=== PATIENT | male | born 1945 | race Caucasian/White ===

== ENCOUNTER 2020-06-05 09:32 | Outpatient (CLI) | payer MEDICARE, SELFPAY ==
[2020-06-05 10:42] LABS: Alanine Aminotransferase 57 U/L (16-63); Albumin Level 3.8 g/dL (3.4-5.0); Alkaline Phosphatase 92 U/L (46-116); Anion Gap 9 mmol/L (8-16); Aspartate Amino Transferase 29 U/L (15-37); Bilirubin,Total 0.4 mg/dL (0.00-1.00); Blood Urea Nitrogen 10 mg/dL (7-18); Carbon Dioxide 30 mmol/L (21-32); Chloride 103 mmol/L (98-108); Cholesterol 273 mg/dL (0-200); Estimated Glomerular Filt Rate > 60; Glucose 198 mg/dL (70-99); HDL Direct 40 mg/dL (40-60); LDL Cholesterol Calculated 171 mg/dL (<130); Osmolality Calculated 299 mOsm/kg (285-295); Potassium 4.1 mmol/L (3.5-5.1); Prostate Specific Antigen 7.5 ng/mL (< OR = 4.0); Sodium 142 mmol/L (136-145); Total Protein 8.1 g/dL (6.4-8.2); Triglycerides 311 mg/dL (0-150)
[2020-06-05 16:51] LABS: Hemoglobin A1C 7.5 % (<5.7)
== END 2020-06-05 09:33 | disposition home or self-care (01) ==
LOC: CHSLAB 09:34
PROVIDERS: PCP Nurse Practitioner Family; Visit Provider Nurse Practitioner Family
DX: E78.5 Hyperlipidemia, unspecified (principal); R35.0 Frequency of micturition; Z12.5 Encounter for screening for malignant neoplasm of prostate; R73.09 Other abnormal glucose
CPT/HCPCS: 36415; 80053; 80061; 83036; 84153; G0103

== ENCOUNTER 2020-06-19 10:29 | Outpatient (CLI) | payer MEDICARE, SELFPAY ==
[2020-06-19 11:36] LABS: Alanine Aminotransferase 57 U/L (16-63); Alkaline Phosphatase 99 U/L (46-116); Anion Gap 7 mmol/L (8-16); Aspartate Amino Transferase 30 U/L (15-37); Bilirubin,Total 0.3 mg/dL (0.00-1.00); Blood Urea Nitrogen 16 mg/dL (7-18); Calcium 11.4 mg/dL (8.5-10.1); Carbon Dioxide 31 mmol/L (21-32); Chloride 103 mmol/L (98-108); Estimated Glomerular Filt Rate > 60; Glucose 223 mg/dL (70-99); Osmolality Calculated 300 mOsm/kg (285-295); Potassium 4.4 mmol/L (3.5-5.1); Sodium 141 mmol/L (136-145); Total Protein 6.9 g/dL (6.4-8.2)
== END 2020-06-19 10:30 | disposition home or self-care (01) ==
LOC: CHSLAB 10:31
PROVIDERS: PCP Nurse Practitioner Family; Visit Provider Nurse Practitioner Family
DX: E83.52 Hypercalcemia (principal)
CPT/HCPCS: 36415; 80053

== ENCOUNTER 2020-06-22 10:40 | Outpatient (CLI) | payer MEDICARE, SELFPAY ==
[2020-06-22 11:39] LABS: Thyroid Stimulating Hormone 1.21 uIU/mL (0.36-3.74)
[2020-06-24 14:04] LABS: Parathyroid Intact 195 pg/mL (14-64)
[2020-06-25 05:29] LABS: Ionized Calcium 6.7 mg/dL (4.8-5.6)
[2020-06-29 10:20] LABS: Vitamin D 25 Hydroxy 9 ng/mL (30-100)
== END 2020-06-22 10:41 | disposition home or self-care (01) ==
LOC: CHSLAB 10:42
PROVIDERS: PCP Nurse Practitioner Family; Visit Provider Nurse Practitioner Family
DX: E83.52 Hypercalcemia (principal)
CPT/HCPCS: 36415; 82306; 82330; 83970; 84439; 84443

== ENCOUNTER 2020-09-11 11:42 | Outpatient (CLI) | payer MEDICARE, SELFPAY ==
[2020-09-11 12:09] LABS: Hemoglobin A1C 6.7 % (<5.7)
[2020-09-11 13:24] LABS: Alanine Aminotransferase 50 U/L (16-63); Albumin Level 3.8 g/dL (3.4-5.0); Alkaline Phosphatase 87 U/L (46-116); Anion Gap 4 mmol/L (8-16); Aspartate Amino Transferase 25 U/L (15-37); Bilirubin,Total 0.4 mg/dL (0.00-1.00); Blood Urea Nitrogen 12 mg/dL (7-18); Calcium 11.6 mg/dL (8.5-10.1); Carbon Dioxide 31 mmol/L (21-32); Chloride 104 mmol/L (98-108); Estimated Glomerular Filt Rate > 60; Glucose 98 mg/dL (70-99); Osmolality Calculated 287 mOsm/kg (285-295); Potassium 4.1 mmol/L (3.5-5.1); Prostate Specific Antigen 8.7 ng/mL (< OR = 4.0); Sodium 139 mmol/L (136-145); Total Protein 6.8 g/dL (6.4-8.2)
== END 2020-09-11 11:43 | disposition home or self-care (01) ==
PROVIDERS: PCP Nurse Practitioner Family; Visit Provider Nurse Practitioner Family
DX: E11.9 Type 2 diabetes mellitus without complications (principal); Z12.5 Encounter for screening for malignant neoplasm of prostate
CPT/HCPCS: 36415; 80053; 83036; 84153; G0103

== ENCOUNTER 2020-10-08 16:32 | Emergency (ER) | payer MEDICARE, SELFPAY ==
--- NOTE | ~2020-10-08 | CT_ITS ---
EXAMINATION: CT abdomen pelvis wo con DATE: 10/08/2020 17:39 INDICATION: Right flank pain TECHNIQUE: Computed tomography (CT) of the abdomen and pelvis was performed without intravenous contr ast. The dose-length product was 501.08 mGy-cm. Automated exposure control and iterative reconstructi on technique were employed. COMPARISON: CT dated 11/30/2013 FINDINGS: Heart size is normal. No significant pleural or pericardial effusion. No significant vascul ar abnormality. There are small stones dependently in the bladder. There is mild right hydronephrosis , although no obstructing stone is present. Left ureter is normal caliber. There are nonobstructing l eft renal stones. There are gallstones. The spleen, pancreas, adrenal glands are unremarkable. There is a punctate nonobstructing right renal stone. There is a 1.8 cm right renal cyst. Bowel gas pattern is nonobstructive. Normal appendix. Col onic diverticulosis without evidence for diverticulitis. Enlarged prostate gland. Moderate lumbar spo ndylosis. No osteolytic or osteoblastic lesions. Levoscoliosis. IMPRESSION: 1. Punctate dependent bladder stones with mild right hydronephrosis. 2: Nonobstructing bilateral nephrolithiasis. 3: Cholelithiasis. Reviewed, dictated and finalized at location A. 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
--- NOTE | 2020-10-08 16:49 | ED.ABDPAIN ---
HPI - Abdominal Pain General Chief Complaint: Urogenital-Male Stated Complaint: back flank pain Time Seen by Provider: 10/08/20 16:49 Source: patient Mode of arrival: ambulatory Limitations: no limitations History of Present Illness HPI narrative: 75-year-old man with a history of urolithiasis comes in today complaining of 2 episodes of severe right back and flank pain that started very early this morning. States that pain lasted for few hours and by midmorning resolved. He states the pain came back about 2:00 p.m. this afternoon but has since resolved after taking some ibuprofen. He has had some nausea but denies fever, vomiting, diarrhea, hematuria, dysuria, cough or cold symptoms, sore throat, body aches, weakness, numbness or tingling. MD elicited complaint: flank pain Pertinent past history: kidney stones Onset (ago): hour(s) (12) Pain Consistency: intermittent and now resolved Location: R flank Severity: severe Quality: sharp Radiation: none Migration to: no migration Exacerbating factors: nothing Relieving factors: nothing Associated symptoms: nausea Treatments prior to arrival: NSAIDs Related Data Home Medications Medication Instructions Recorded Confirmed finasteride 5 mg PO DAILY 10/08/20 10/08/20 Allergies Allergy/AdvReac Type Severity Reaction Status Date / Time Tetracyclines Allergy Intermediate Unknown Verified 10/08/20 16:59 metformin AdvReac Intermediate severe Verified 10/08/20 16:59 diarrhea Review of Systems Constitutional: Constitutional: Denies chills, Denies fever(s) and Denies weakness Eyes: Eyes: Denies change in vision and Denies photophobia ENT: Denies dysphagia, Denies nasal congestion and Denies sore throat Cardiovascular: Cardiovascular: Denies chest pain and Denies radiating jaw, neck or arm pain Respiratory: Respiratory: Denies cough, Denies dyspnea and Denies wheezing Gastrointestinal: Gastrointestinal: Reports abdominal pain, Denies diarrhea and Denies vomiting Genitourinary: Genitourinary: Denies hematuria, Denies urinary frequency and Denies urinary incontinence Musculoskeletal: Musculoskeletal: Denies arthralgias and Denies joint swelling Integumentary/Breasts: Skin/Breast: Denies pruritus, Denies erythema and Denies rash Neurologic: Denies vertigo, Denies dizziness and Denies syncope Hematologic/Lymphatic: Hematologic/Lymphatic: Denies easy bleeding and Denies easy bruising Allergic/Immunologic: Allergic/Immunologic: Denies lip swelling and Denies throat swelling PMFSH Past Medical History Medical History Cough Elevated PSA History of nephrolithotomy with removal of calculi Hyperlipidemia IBS (irritable bowel syndrome) Influenza A Nicotine dependence in remission Overweight Subungual contusion of toenail of left foot Type 2 diabetes mellitus Surgical History Surgical History H/O wrist surgery (~2001) wrist pinning History of tonsillectomy Previous back surgery (~1983) herniated disc repair Family History Family History Mother Benign hypertension IBS (irritable bowel syndrome) Migraines Father Hyperlipidemia Heart attack Social History Social History Years smoked: 40 Tobacco type: cigarettes Alcohol intake: current Substance use: never Substance use type: does not use Additional living arrangements comments: , has 2 children Additional occupation/education comments: [employer] Gender identity (if verbalized by the patient): Male Spiritual care concerns: No Exam Const: General: healthy appearing and no acute distress Orientation/consciousness: patient oriented x3 Limitations: no limitations HENMT: Head: normal to inspection Ears: external ears normal, TM's normal bilaterally
[2020-10-08 16:54] VITALS: BP 167/97; PULSE 81; RESP 20; TEMP 36.7; O2SAT 98
[2020-10-08 16:55] LABS: Add Urine Microscopic? YES; Appearance Urine Clear (Clear); Bilirubin Urine Negative (Negative); Blood Urine 3+ (Negative); Color Urine Yellow (Yellow); Glucose Urine UA Negative (Negative); Ketones Urine Negative (Negative); Leukocyte Esterase Ur Trace (Negative); Nitrate Urine Negative (Negative); Protein Urine Negative (Negative); Urobilinogen Urine 0.2 mg/dL (0.2-1.0); pH Urine 6.5 (5.0-8.0)
[2020-10-08 17:00] LABS: Bacteria Urine Trace /hpf; RBC Urine >75 /hpf (0-2); Squamous Epithelial Cell Urine Rare /hpf (Few); WBC Urine None seen /hpf (0-3)
[2020-10-08 17:01] LABS: Budding Yeast Urine Present /hpf
[2020-10-08 17:20] LABS: Basophils Absolute Auto 0.07 K/mm3 (0.00-0.10); Basophils Percent Auto 0.7 % (0.0-1.0); Eosinophils Absolute Auto 0.19 K/mm3 (0.02-0.50); Eosinophils Percent Auto 1.8 % (1.0-6.0); Hematocrit 41.3 % (37.0-46.0); Hemoglobin 13.5 g/dL (12.4-15.3); Immature Granulocyte Absolute 0.04 K/mm3 (0.00-0.00); Immature Granulocyte Percent A 0.4 % (0.0-0.0); Lymphocytes Absolute Auto 2.39 K/mm3 (1.10-4.50); Lymphocytes Percent Auto 22.3 % (18.0-42.0); Mean Corpuscular HGB Conc 32.7 g/dL (32.0-36.0); Mean Corpuscular Volume 88.6 fL (78.0-102.0); Mean Platelet Volume 9.9 fl (8.7-11.0); Monocytes Absolute Auto 0.88 K/mm3 (0.10-0.90); Monocytes Percent Auto 8.2 % (2.0-11.0); Neutrophils Absolute Auto 7.2 K/mm3 (1.7-7.2); Neutrophils Percent Auto 66.6 % (50.0-70.0); Platelet Count Result 275 K/mm3 (150-420); Red Blood Count 4.66 M/mm3 (4.70-6.10); Red Cell Distribution Width 13.4 % (11.6-14.4); White Blood Count 10.7 K/mm3 (4.8-10.8)
[2020-10-08 17:29] LABS: Partial Thromboplastin Time 22.7 SEC (23.90-30.70); Prothrombin Time 10.5 Seconds (9.50-12.10)
[2020-10-08 17:30] LABS: Alanine Aminotransferase 51 U/L (16-63); Albumin Level 3.5 g/dL (3.4-5.0); Alkaline Phosphatase 83 U/L (46-116); Anion Gap 10 mmol/L (8-16); Aspartate Amino Transferase 24 U/L (15-37); Bilirubin,Total 0.4 mg/dL (0.00-1.00); Blood Urea Nitrogen 15 mg/dL (7-18); Carbon Dioxide 28 mmol/L (21-32); Chloride 103 mmol/L (98-108); Estimated CRCL calculation 60 ml/min; Estimated Glomerular Filt Rate > 60; Glucose 141 mg/dL (70-99); Osmolality Calculated 294 mOsm/kg (285-295); Potassium 3.6 mmol/L (3.5-5.1); Sodium 141 mmol/L (136-145); Total Protein 6.9 g/dL (6.4-8.2)
[2020-10-08 17:33] LABS: Lactic Acid Reflex 1.5 mmol/L (0.4-2.0)
[2020-10-08 17:47] VITALS: BP 153/83; PULSE 75; RESP 20; O2SAT 97
[2020-10-08 18:09] VITALS: PULSE 78; RESP 20; O2SAT 98
== END 2020-10-08 18:11 | disposition home or self-care (01) ==
PROVIDERS: Emergency Provider Emergency Medicine; PCP Family Medicine
DX: N21.0 Calculus in bladder (principal); E11.9 Type 2 diabetes mellitus without complications; E78.5 Hyperlipidemia, unspecified; Z87.891 Personal history of nicotine dependence
CPT/HCPCS: 36415; 74176; 80053; 81001; 83605; 85025; 85610; 85730; 87040; 87086; 99283; 99284

== ENCOUNTER 2020-11-08 12:46 | Emergency (ER) | payer MEDICARE, SELFPAY ==
--- NOTE | ~2020-11-08 | CT_ITS ---
EXAMINATION: CT abdomen pelvis wo con DATE: 11/08/2020 14:00 INDICATION: Left flank pain. Nausea. TECHNIQUE: Computed tomography (CT) of the abdomen and pelvis was performed without intravenous contr ast. Automated exposure control and iterative reconstruction technique were employed. The dose-length product was 844.49 mGy-cm. COMPARISON: CT abdomen and pelvis 10/08/2020 FINDINGS: The visualized portions of the lung bases demonstrate mild atelectasis. No pleural effusion . The heart size is normal. There are coronary artery calcifications. There are calcifications of aor tic valve. No pericardial effusion. There is bilateral gynecomastia. There is diffuse hepatic steatos is. There is a gallstone in the gallbladder, which is normal in size. The spleen, pancreas, and left adrenal gland are normal. There is a 7 mm mass of fat in right adrenal gland, consistent with a myelo lipoma. There is a 2.0 cm cyst in right kidney. There is a 3 mm stone in right kidney. There is mild left hydronephrosis and hydroureter. There is a 4 mm stone in proximal left ureter. There are multipl e stones in the bladder measuring up to 6 mm. The prostate is severely enlarged. There is diverticulo sis of the colon without evidence of diverticulitis. There are no dilated loops of bowel. The appendi x is normal. There are no pathologically enlarged lymph nodes. There is no free intraperitoneal fluid . There is lumbar levoscoliosis and severe spondylosis. IMPRESSION: 1. 4 mm stone in proximal left ureter with mild left hydronephrosis and left hydroureter. 2. Bladder stones and right kidney stone. 3. Cholelithiasis. Reviewed, dictated and finalized at location A. 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 4 mm stone in proximal left ureter with mild left hydronephrosis and left hy droureter. 2. Bladder stones and right kidney stone. 3. Cholelithiasis.
[2020-11-08 13:10] VITALS: BP 167/84; PULSE 62; RESP 20; TEMP 36.4; O2SAT 98
--- NOTE | 2020-11-08 13:31 | ED.GENADULT ---
HPI - General Adult General Chief complaint: Back Pain/Injury Stated complaint: severe back pain Source: patient and family Mode of arrival: ambulatory Limitations: no limitations History of Present Illness HPI narrative: Mr. Mcmahon is a 75M with a PMH of DMII, nephrolithiasis, HLD, IBS, and an elevated PSA that presented to the ED with left flank and back pain. It started about 3-[address] he [address] lying down. It is described as a colicky 8/10 pain that radiates to his groin and felt like previous stones. Admits nausea but no vomiting. No CP, SOB, or syncope. Denies dysuria. Related Data Home Medications Medication Instructions Recorded Confirmed finasteride 5 mg PO DAILY 10/08/20 11/08/20 Allergies Allergy/AdvReac Type Severity Reaction Status Date / Time Tetracyclines Allergy Intermediate Unknown Verified 10/10/20 09:58 metformin AdvReac Intermediate severe Verified 10/10/20 09:58 diarrhea Review of Systems Constitutional: Constitutional: Reports no additional constitutional complaints Eyes: Eyes: Reports no additional eye complaints ENT: Reports system reviewed and no additional complaints, except as documented Cardiovascular: Cardiovascular: Reports no additional cardiovascular complaints Respiratory: Respiratory: Reports no additional respiratory complaints Gastrointestinal: Gastrointestinal: Reports as per HPI Genitourinary: Genitourinary: Reports as per HPI Musculoskeletal: Musculoskeletal: Reports no additional musculoskeletal complaints Integumentary/Breasts: Skin/Breast: Reports system reviewed and no additional complaints, except as docu Neurologic: Reports system reviewed and no additional complaints, except as documented Psychiatric: Psychiatric: Reports no additional psychiatric complaints Endocrine: Endocrine: Reports no additional endocrine complaints Hematologic/Lymphatic: Hematologic/Lymphatic: Reports no additional hematologic/lymphatic complaints Allergic/Immunologic: Allergic/Immunologic: Reports no additional allergic/immunologic complaints [facility] Past Medical History Medical History Cough Elevated PSA History of nephrolithotomy with removal of calculi Hyperlipidemia IBS (irritable bowel syndrome) Influenza A Nicotine dependence in remission Overweight Subungual contusion of toenail of left foot Type 2 diabetes mellitus Surgical History Surgical History H/O wrist surgery (~2001) wrist pinning History of tonsillectomy Previous back surgery (~1983) herniated disc repair Family History Family History Mother Benign hypertension IBS (irritable bowel syndrome) Migraines Father Hyperlipidemia Heart attack Social History Social History Years smoked: 40 Smoking status: Former smoker Tobacco type: cigarettes Alcohol intake: current Substance use: never Substance use type: does not use Additional living arrangements comments: , has 2 children Additional occupation/education comments: [employer] Gender identity (if verbalized by the patient): Male Spiritual care concerns: No Exam Const: General: alert; No confusion Orientation/consciousness: patient oriented x3 Limitations: No altered mental status Other: In moderate distress. HENMT: Head: normal to inspection Other: atraumatic. Wearing a mask. Eyes: Conjunctivae: conjunctivae normal Pupils: Equal, round and reactive pupils present Neck: Neck: normal visual inspection Chest: Chest palpation & inspection: normal inspection of the chest Resp: Effort & Inspection: normal respiratory effort, not labored and no retractions Auscultation: clear to auscultation bilaterally Cardio: Rate: regular rate Rhythm: regular rhythm GI: Inspection:
[2020-11-08 13:37] LABS: Basophils Absolute Auto 0.08 K/mm3 (0.00-0.10); Basophils Percent Auto 0.8 % (0.0-1.0); Eosinophils Absolute Auto 0.06 K/mm3 (0.02-0.50); Eosinophils Percent Auto 0.6 % (1.0-6.0); Hematocrit 43.1 % (37.0-46.0); Hemoglobin 14.2 g/dL (12.4-15.3); Immature Granulocyte Absolute 0.03 K/mm3 (0.00-0.00); Immature Granulocyte Percent A 0.3 % (0.0-0.0); Lymphocytes Absolute Auto 1.63 K/mm3 (1.10-4.50); Lymphocytes Percent Auto 16.1 % (18.0-42.0); Mean Corpuscular HGB Conc 32.9 g/dL (32.0-36.0); Mean Corpuscular Hemoglobin 29.3 pg (27.0-31.0); Monocytes Absolute Auto 0.73 K/mm3 (0.10-0.90); Monocytes Percent Auto 7.2 % (2.0-11.0); Neutrophils Absolute Auto 7.6 K/mm3 (1.7-7.2); Platelet Count Result 285 K/mm3 (150-420); Red Blood Count 4.84 M/mm3 (4.70-6.10); Red Cell Distribution Width 13.4 % (11.6-14.4); White Blood Count 10.1 K/mm3 (4.8-10.8)
[2020-11-08] MEDS: KETOROLAC 30 MG/ML VIAL (*BKC) IM (13:40)
[2020-11-08] MEDS: MORPHINE SULFATE (*CRX) 4 MG/ML INJ IV PUSH (13:40)
[2020-11-08] MEDS: ONDANSETRON INJ 4 MG/2 ML VIAL IV PUSH (13:40)
[2020-11-08 13:52] LABS: Alanine Aminotransferase 47 U/L (16-63); Albumin Level 3.7 g/dL (3.4-5.0); Alkaline Phosphatase 86 U/L (46-116); Anion Gap 10 mmol/L (8-16); Aspartate Amino Transferase 34 U/L (15-37); Bilirubin,Total 0.5 mg/dL (0.00-1.00); Blood Urea Nitrogen 15 mg/dL (7-18); Calcium 11.4 mg/dL (8.5-10.1); Carbon Dioxide 29 mmol/L (21-32); Chloride 101 mmol/L (98-108); Estimated Glomerular Filt Rate 50; Glucose 137 mg/dL (70-99); Lipase 69 U/L (73-393); Osmolality Calculated 292 mOsm/kg (285-295); Potassium 3.9 mmol/L (3.5-5.1); Sodium 140 mmol/L (136-145); Total Protein 7.1 g/dL (6.4-8.2)
[2020-11-08 15:06] LABS: Add Urine Microscopic? YES; Appearance Urine Clear (Clear); Bilirubin Urine Negative (Negative); Blood Urine 3+ (Negative); Color Urine Yellow (Yellow); Glucose Urine UA Trace (Negative); Ketones Urine Negative (Negative); Leukocyte Esterase Ur Trace (Negative); Nitrate Urine Negative (Negative); Protein Urine Trace (Negative)
[2020-11-08 15:16] LABS: RBC Urine >75 /hpf (0-2)
[2020-11-08 15:17] LABS: Bacteria Urine Trace /hpf; Squamous Epithelial Cell Urine Rare /hpf (Few)
[2020-11-08 16:02] VITALS: BP 145/73; PULSE 69; RESP 18; O2SAT 99
== END 2020-11-08 16:05 | disposition home or self-care (01) ==
PROVIDERS: Emergency Provider Family Medicine; PCP Family Medicine
DX: N20.1 Calculus of ureter (principal); E78.5 Hyperlipidemia, unspecified; E11.9 Type 2 diabetes mellitus without complications; Z87.891 Personal history of nicotine dependence
CPT/HCPCS: 36415; 74176; 80053; 81001; 83690; 85025; 96372; 96374; 96375; 99283; 99284; J1885; J2270; J2405

== ENCOUNTER 2020-11-14 13:44 | Outpatient (NON) | payer MEDICARE, SELFPAY | END 2020-11-14 13:45 | LOC: CHSLAB 13:45 | PROVIDERS: Visit Provider Nurse Practitioner Family | DX: R35.0 Frequency of micturition (principal) | CPT/HCPCS: 87086 ==

== ENCOUNTER 2020-11-23 12:25 | Outpatient (CLI) | payer MEDICARE, SELFPAY ==
--- NOTE | ~2020-11-23 | XR_ITS ---
XR abdomen/kub 1V 11/23/2020 12:52 INDICATION: Left renal stone TECHNIQUE: KUB COMPARISON: No prior studies for comparison. FINDINGS: Bowel gas pattern is normal. There is no evidence of free air, mass, organomegaly, ascites or obstruction. No abnormal calculi are seen. Moderate lumbar spondylosis with levoscoliosis. The b ones appear intact. IMPRESSION: 1: No acute abdominal abnormality identified. Reviewed, dictated and finalized at location A.
== END 2020-11-23 12:26 | disposition home or self-care (01) ==
PROVIDERS: Visit Provider Urology
DX: N20.0 Calculus of kidney (principal)
CPT/HCPCS: 74018

== ENCOUNTER 2020-12-01 14:24 | Outpatient (CLI) | payer MEDICARE, SELFPAY ==
[2020-12-01 15:42] LABS: Cholesterol 256 mg/dL (0-200); HDL Direct 37 mg/dL (40-60); LDL Cholesterol Calculated 165 mg/dL (<130); Triglycerides 269 mg/dL (0-150)
[2020-12-04 13:43] LABS: Vitamin D 25 Hydroxy 36 ng/mL (30-100)
== END 2020-12-01 14:25 | disposition home or self-care (01) ==
LOC: CHSLAB 14:27
PROVIDERS: PCP Nurse Practitioner Family; Visit Provider Nurse Practitioner Family
DX: E78.5 Hyperlipidemia, unspecified (principal); E55.9 Vitamin D deficiency, unspecified
CPT/HCPCS: 36415; 80061; 82306

== ENCOUNTER 2020-12-06 13:38 | Outpatient (CLI) | payer MEDICARE, SELFPAY ==
--- NOTE | ~2020-12-06 | CT_ITS ---
EXAMINATION: CT abdomen pelvis wo con EXAM DATE: 12/06/2020 14:20 INDICATION: Kidney stone. TECHNIQUE: Spiral CT of the abdomen and pelvis was performed without contrast. Axial, coronal and sag ittal images were reviewed. The dose-length product (DLP) for this examination was 274.17 mGy-cm. T he exposure was tailored according to patient size (auto mA exposure control), and iterative reconstr uction (ASIR) was used as additional dose reduction technique. Comparison is made to prior examinatio n from 11/08/2020. FINDINGS: Previously seen left mid ureteral stone has migrated a few centimeters more distally than o n previous exam. This measures 5 mm greatest axial dimension by 7 mm craniocaudal dimension. There is mild left-sided obstructive nephropathy unchanged. Punctate right superior calyceal stone. There is 1.8 cm right renal cyst. Several tiny bladder densities, stones. There is moderate prostatomegaly. T he bladder is unremarkable. Small bilateral adrenal gland adenomas versus hyperplasia. The spleen, an d pancreas are unremarkable. Mild hepatic steatosis. Several small calcified gallstones. There is no retroperitoneal or pelvic lymphadenopathy. There is mild scattered arteriosclerotic disease. The appendix is normal. There is moderate sigmoid predominant colonic diverticulosis. There is no ad jacent inflammatory change to suggest diverticulitis. The stomach and small bowel are unremarkable. There is expected amount of colonic stool. No free intraperitoneal gas. The heart is normal in si ze. There are no pericardial or pleural effusions. The lung bases are unremarkable. There are no o steoblastic or osteolytic lesions identified. IMPRESSION: 1. Left mid ureteral 5 x 7 mm stone, mild obstructive nephropathy. 2. Punctate right nephrolithiasis. Small bladder stones. 3. Cholelithiasis. 4. Hepatic steatosis. 5. Colonic diverticulosis. Reviewed, dictated and finalized at location A.
== END 2020-12-06 13:39 | disposition home or self-care (01) ==
PROVIDERS: PCP Nurse Practitioner Family; Visit Provider Urology
DX: K80.20 Calculus of gallbladder without cholecystitis without obstruction (principal); K57.30 Diverticulosis of large intestine without perforation or abscess without bleeding; K76.0 Fatty (change of) liver, not elsewhere classified; N20.2 Calculus of kidney with calculus of ureter
CPT/HCPCS: 74176

== ENCOUNTER 2020-12-08 02:24 | Day surgery (SDC) | payer MEDICARE, SELFPAY ==
[2020-12-07 10:56] VITALS: BMI 28.5
--- NOTE | ~2020-12-08 | XR_ITS ---
EXAMINATION: XR retrograde pyelo w/stent LT EXAM DATE: 12/08/2020 09:56 INDICATION: Cystogram, retrograde pyelogram, stone extraction, stent placement. TECHNIQUE: Fluoroscopy used during XR retrograde pyelo w/stent LT performed by Dr. Aiden waddell MD. Total fluoroscopic time of 0.4 minutes. A total of 7 images obtained for the exam. The D AP for this procedure was 324 radcm2. FINDINGS: The left ureter was cannulated, injected. There is mild to moderate left-sided hydronephro sis. A double-J ureteral stent was placed. Reportedly also stone extracted, Correlate with procedure note. Mild to moderate lumbar levoscoliosis. IMPRESSION: Mild to moderate left hydronephrosis. Stent in position. Reviewed, dictated and finalized at location A.
--- NOTE | 2020-12-08 06:13 | ECG_ITS ---
Measurements Intervals [place] Rate: 72 P: 60 MT: 182 QRS: 1 QRSD: 145 T: 60 QT: 378 QTc: 416 Interpretive Statements SINUS RHYTHM RIGHT BUNDLE BRANCH BLOCK ABNORMAL ECG Electronically Signed On 12-08-2020 8:46:08 CDT by Remy Silva D.O.
[2020-12-08] MEDS: LACTATED RINGERS 1,000 ML 30 ML IV CONT (08:45)
[2020-12-08 08:49] LABS: Glucose Point of Care 104 (65-105)
--- NOTE | 2020-12-08 08:56 | WPDANESEPPF ---
Anes - Initial Pre Proc Eval Procedure: Operation Date: 12/08/20 10:00 Proposed Procedures p Cystoscopy, Left Ureteroscopy, Retrograde Pyelogram, Stone Extraction, Left Stent Placement - Aiden Wolff MD s Holmium Laser Procedure - Aiden Wolff MD Date/Time: 12/08/20 08:56 Surgeon: Aiden Wolff MD Pre Op Diagnosis: left kidney stones Patient Data Age: 75 Gender: M Height: 6 ft 1 in Weight: 98.18 kg Allergies Allergy/AdvReac Type Severity Reaction Status Date / Time Tetracyclines Allergy Intermediate Hives Verified 12/08/20 08:24 metformin AdvReac Intermediate severe Verified 12/08/20 08:24 diarrhea Home Medications Medication Instructions Recorded Confirmed Type blood-glucose meter #100 ea 06/19/20 11/08/20 Rx blood sugar diagnostic #100 ea 06/28/20 11/08/20 Rx lancets 30 gauge #100 ea 06/28/20 11/08/20 Rx dulaglutide 0.75 mg/0.5 mL See Rx Instructions .ROUTE 09/21/20 12/07/20 Rx subcutaneous pen injector .COMPLEX #2 ml finasteride 5 mg PO HS 10/08/20 12/07/20 History hydrocodone-acetaminophen 1 tablet PO Q8H PRN #15 tablet 11/08/20 12/08/20 Rx docusate sodium 100 mg capsule 100 mg PO BID PRN #30 cap 11/10/20 12/07/20 Rx fenofibrate 160 mg tablet 160 mg PO DAILY #30 tablet 12/05/20 12/07/20 Rx hkszbey-uupjazwhirqsg-cncgbdza 1 tablet PO Q4-6H PRN 12/07/20 12/08/20 History [Excedrin Extra Strength] cholecalciferol (vitamin D3) 50 mcg PO WEEKLY 12/07/20 12/07/20 History [Vitamin D3] tamsulosin [Flomax] 0.4 mg PO QAM 12/07/20 12/08/20 History Laboratory Tests 12/08/20 08:46 POC Capillary Glucose 104 mg/dl mg/dl (65-105) Patient hx anesthesia problems: none Family hx anesthesia problems: none PMFSH Past Medical History Medical History Cough Elevated PSA Encounter for screening for malignant neoplasm of prostate History of nephrolithotomy with removal of calculi Hyperlipidemia IBS (irritable bowel syndrome) Influenza A Nicotine dependence in remission Overweight Subungual contusion of toenail of left foot Type 2 diabetes mellitus Surgical History Surgical History H/O wrist surgery (~2001) wrist pinning History of tonsillectomy Previous back surgery (~1983) herniated disc repair Family History Family History Mother Benign hypertension IBS (irritable bowel syndrome) Migraines Father Hyperlipidemia Heart attack Social History Social History Years smoked: 40 Smoking status: Former smoker Tobacco type: cigarettes Second hand tobacco smoke exposure: No Smoking end date: 10/02/16 Alcohol intake: never Substance use: never Substance use type: does not use Living arrangements: with family Additional living arrangements comments: , has 2 children Additional occupation/education comments: [employer] Gender identity (if verbalized by the patient): Male Spiritual care concerns: No Anes - Eval Final PreProcedure Day of Procedure 12/08/20 08:56 Patient weight: overweight Heart: regular rate and rhythm Lungs: clear to auscultation Airway: Mallampati scale class II Neurological: alert and oriented Last oral intake: >/= 8 hours ASA classification: III Emergent: no Anesthetic plan: proceed Anesthesia type and monitoring: general LMA and standard monitoring Informed Consent: The patient's anesthetic plan and its attendant risks and benefits were discussed with the patient/family/POA. Questions were solicited and answers provided to the satisfaction of the patient/family/POA.
[2020-12-08 09:05] VITALS: BP 148/79; PULSE 71; TEMP 36.2; O2SAT 100
--- NOTE | 2020-12-08 09:09 | WPDHPUPDATE1 ---
History and Physical Update Update Date/Time: 12/08/20 09:09 History and Physical has been reviewed, including an updated exam of the patient. There are NO changes in the patient's condition. Risks, benefits, and alternatives have been discussed and questions answered. Patient agrees to proceed with procedure. Proceed with cystoscopy, left retrograde pyelogram, left ureteroscopy with stone extraction, possible holmium laser, left ureteral stent placement.
[2020-12-08] MEDS: ceFAZolin 2 GM/D5W 50 ML 2 GM/50 ML BAG IVPB (09:17)
[2020-12-08] MEDS: LIDOCAINE HCL 2% GEL UROJET 10 ML PKG MUCOUS MEM (09:24)
--- NOTE | 2020-12-08 09:56 | PM.PROC ---
Procedure Note - Detailed Date of procedure: 12/08/20 Pre-op diagnosis: left kidney stones Left ureteral calculus 5 x 7 mm Post-op diagnosis: same (Small bladder calculi) Procedure performed: Cystoscopy with extraction of bladder calculi, left retrograde pyelogram, left ureteroscopy with stone extraction, left ureteral stent placement 4.8 Monegasque contour Description of procedure: Patient is taken the operative suite and correctly identified. Once anesthesia was obtained was placed in dorsal lithotomy position and prepped and draped usual sterile fashion. Twenty-two Monegasque scope was inserted in the bladder. He has an enlarged prostate somewhat obstructive in nature. With a median lobe. The bladder has 2+ trabeculation present her small little bladder calculi which we retrieved with the scope. Left ureteral orifice was cannulated with a guidewire. We dilated with an 810 dilator. A rigid ureteral scope could not manipulate into the ureter. We thus placed a ureteral access sheath. Mini flexible ureteral scope was inserted. The stone was visualized. It was grasped with an escape basket retrieve its entirety and sent for analysis. Pyelogram was then performed to confirm placement the stent. 4.8 Monegasque contour was then placed with the proximal end coiled in the renal pelvis and the distal in the bladder. 2% viscous lidocaine was inserted urethra patient is taken recovery stable condition. He will follow up in a week's time for stent removal. Anesthesia: GLMA Surgeon: Aiden Wolff MD Drains: Yes Packing: No Pathology: yes Complications: No immediate complications Condition: stable Disposition: PACU
[2020-12-08 09:59] VITALS: BP 175/93; PULSE 69; RESP 12; TEMP 36.1; O2SAT 100
[2020-12-08 10:06] LABS: Glucose Point of Care 95 (65-105)
[2020-12-08 10:15] VITALS: BP 167/80; PULSE 60; RESP 13; O2SAT 100
--- NOTE | 2020-12-08 10:17 | SUR.PHASEI ---
02 removed at 1016.
[2020-12-08 10:30] VITALS: BP 162/87; PULSE 61; RESP 16; O2SAT 98
[2020-12-08 10:36] VITALS: BP 174/94; PULSE 62; RESP 16
[2020-12-08 11:05] VITALS: BP 156/96; PULSE 54; RESP 16
== END 2020-12-08 11:40 | disposition home or self-care (01) ==
PROVIDERS: PCP Nurse Practitioner Family; Visit Provider Urology
PROC: (CPT 52352; principal; 2020-12-08 10:00)
DX: N20.0 Calculus of kidney (principal); R97.20 Elevated prostate specific antigen [PSA]; E78.5 Hyperlipidemia, unspecified; K58.9 Irritable bowel syndrome, unspecified; E11.9 Type 2 diabetes mellitus without complications; Z87.891 Personal history of nicotine dependence; I45.10 Unspecified right bundle-branch block; R31.0 Gross hematuria
CPT/HCPCS: 52332; 52352; 74420; 82365; 82948; 88300; 93005; A9270; C1758; C1769; C1894; C2617; J0690; J1100; J2405; J2704; J3010; J7120; Q9966

== ENCOUNTER 2021-01-17 11:48 | Outpatient (CLI) | payer MEDICARE, SELFPAY ==
[2021-01-17 13:36] LABS: Albumin Level 4.2 g/dL (3.5-5.1); Anion Gap 5 mmol/L (8-16); Blood Urea Nitrogen 13 mg/dL (9-20); Calcium 10.8 mg/dL (8.4-10.2); Carbon Dioxide 31 mmol/L (22-30); Chloride 103 mmol/L (98-107); Estimated Glomerular Filt Rate 59; Glucose 94 mg/dL (75-110); Parathyroid Intact 226.5 pg/mL (7.5-53.5); Phosphorus 2.6 mg/dL (2.5-4.5); Sodium 139 mmol/L (137-145)
[2021-01-17 13:38] LABS: Vitamin D 25 Hydroxy 34.5 ng/mL
[2021-01-17 13:51] LABS: Creatinine Urine 89.2 mg/dL
[2021-01-17 14:30] LABS: Creatinine 24 Hour Urine 1.3 gm/24 (1.0-2.0); Total Volume 24 Hour Urine 1500 ml
[2021-01-22 02:42] LABS: Total Volume 1500 mL; Urine Calcium 14.5 mg/dL
== END 2021-01-17 11:49 | disposition home or self-care (01) ==
LOC: ANHLAB 11:50
PROVIDERS: PCP Nurse Practitioner Family; Visit Provider Internal Medicine Endocrinology, Diabetes & Metabolism
DX: E83.52 Hypercalcemia (principal)
CPT/HCPCS: 36415; 80048; 81050; 82040; 82306; 82340; 82570; 83970; 84100

== ENCOUNTER 2021-01-22 07:29 | Outpatient (CLI) | payer MEDICARE, SELFPAY ==
--- NOTE | ~2021-01-22 | NM_ITS ---
EXAMINATION: NM parathyroid w imaging DATE: 01/22/2021 10:26 INDICATION: Hypercalcemia. Hyperparathyroidism. TECHNIQUE: 20 mCi Tc99m sestamibi (Cardiolite) was administered by intravenous route. Anterior images of the neck were obtained at 10 minutes and 2 hours. COMPARISON: None. FINDINGS/IMPRESSION: 1: Persistent uptake in the region of the deep right thyroid lobe consistent with parathyroid adenoma . 2. Asymmetric increased uptake in the right submandibular gland relative to the left which is of inde terminate etiology or significance. Could not exclude an additional ectopic parathyroid adenoma. Reviewed, dictated and finalized at location A.
== END 2021-01-22 07:30 | disposition home or self-care (01) ==
PROVIDERS: PCP Nurse Practitioner Family; Visit Provider Internal Medicine Endocrinology, Diabetes & Metabolism
DX: E21.3 Hyperparathyroidism, unspecified (principal)
CPT/HCPCS: 78070; A9500

== ENCOUNTER 2021-01-24 07:35 | Outpatient (CLI) | payer MEDICARE, SELFPAY ==
--- NOTE | ~2021-01-24 | DEXA_ITS ---
Bone Density Report Name: Fabio Mcmahon Age: 76 Sex: Male Ethnicity: White Date of : 1945 Indication: hyperparathyroidism; height loss; prior fracture; Referring Provider: Milana Tay Study: Bone densitometry was performed. Exam Date: January 24, 2021 Accession number: [id number] There is hypertrophic degenerative change of the lumbar spine, which results in higher than expected spine bone mineral density measurements. These spine BMD and T score and Z score measurements are not reflective of the patient's true general bone mineral density. Bone Density: Region BMD T-score Z-score Classification AP Spine (L1-L4) 1.017 -0.7 0.4 Normal Femoral Neck (Left) 0.692 -1.8 -0.4 Osteopenia Total Hip (Left) 0.864 -1.1 -0.3 Osteopenia Total Hip Bilateral Avg 0.878 -1.0 -0.2 Osteopenia Femoral Neck (Right) 0.693 -1.7 -0.4 Osteopenia Total Hip (Right) 0.891 -0.9 -0.1 Normal World Health Organization criteria for BMD impression classify patients as: Normal (T-score at or above -1.0), Osteopenia (T-score between -1.0 and -2.5), or Osteoporosis (T-score at or below -2.5). 10-year Fracture Risk(1): Major Osteoporotic Fracture 11% Hip Fracture 3.3% Reported Risk Factors: [place] (), Neck BMD=0.693, BMI=28.1, previous fracture (1) FRAX(R) Version 3.08. Fracture probability calculated for an untreated patient. Fracture probability may be lower if the patient has received treatment. Clinical Information Provided by Patient: Has had a low trauma fracture Has used the following medications: Vitamin D Has the following medical conditions: Hyperparathyroidism Patient maximum height was 74 No regular weight bearing exercise Does not regularly consume dairy products Drinks caffeinated beverages Impression: The patient has low bone mass, based on the Left Femoral Neck T-score. The patient has an estimated ten-year risk of hip fracture of 3.3% and an estimated ten-year risk of major fracture of 11%, based on the WHO FRAX algorithm. The patient has risk factors, including: previous fracture. There is hypertrophic degenerative change of the lumbar spine, which results in higher than expected spine bone mineral density measurements. These spine BMD and T score and Z score measurements are not reflective of the patient's true general bone mineral density. Discussion: BONE DENSITY IS LOW AT ONE OR MORE SKELETAL SITES. THE PATIENT'S BMD AND CLINICAL RISK FACTORS CONTRIBUTE TO THIS PATIENT'S INCREASED RISK OF FRACTURE. This patient's lowest T-score is low at one or more skeletal sites. It meets the World Health Organization's (WHO) criteria for ?low bone mass? (T-score between -1.0 and -2.5). The patient's 10-year risk of hip fracture as calculated by FRAX exceeds the threshold where pharmacological therapy is recommended by the National Os
== END 2021-01-24 07:36 | disposition home or self-care (01) ==
LOC: ANHIMG 07:37
PROVIDERS: PCP Nurse Practitioner Family; Visit Provider Internal Medicine Endocrinology, Diabetes & Metabolism
DX: E21.3 Hyperparathyroidism, unspecified (principal); M85.852 Other specified disorders of bone density and structure, left thigh; M85.851 Other specified disorders of bone density and structure, right thigh
CPT/HCPCS: 77080

== ENCOUNTER 2021-02-13 08:33 | Outpatient (CLI) | payer MEDICARE, SELFPAY ==
[2021-02-13 09:12] LABS: Alanine Aminotransferase 43 U/L (16-63); Albumin Level 3.8 g/dL (3.4-5.0); Alkaline Phosphatase 81 U/L (46-116); Anion Gap 7 mmol/L (8-16); Aspartate Amino Transferase 25 U/L (15-37); Bilirubin,Total 0.4 mg/dL (0.00-1.00); Blood Urea Nitrogen 17 mg/dL (7-18); Calcium 10.7 mg/dL (8.5-10.1); Carbon Dioxide 29 mmol/L (21-32); Chloride 105 mmol/L (98-108); Cholesterol 230 mg/dL (0-200); Estimated Glomerular Filt Rate > 60; Glucose 119 mg/dL (70-99); HDL Direct 39 mg/dL (40-60); LDL Cholesterol Calculated 136 mg/dL (<130); Osmolality Calculated 294 mOsm/kg (285-295); Potassium 4.1 mmol/L (3.5-5.1); Sodium 141 mmol/L (136-145); Total Protein 6.7 g/dL (6.4-8.2); Triglycerides 274 mg/dL (0-150)
== END 2021-02-13 08:34 | disposition home or self-care (01) ==
LOC: CHSLAB 08:35
PROVIDERS: PCP Nurse Practitioner Family; Visit Provider Nurse Practitioner Family
DX: E11.9 Type 2 diabetes mellitus without complications (principal); E78.5 Hyperlipidemia, unspecified
CPT/HCPCS: 36415; 80053; 80061; 83036

== ENCOUNTER 2021-03-27 08:51 | Outpatient (CLI) | payer MEDICARE, SELFPAY ==
[2021-03-27 10:26] LABS: Anion Gap 7 mmol/L (8-16); Blood Urea Nitrogen 16 mg/dL (9-20); Calcium 10.6 mg/dL (8.4-10.2); Carbon Dioxide 28 mmol/L (22-30); Chloride 106 mmol/L (98-107); Estimated Glomerular Filt Rate > 60; Glucose 106 mg/dL (65-110); Potassium 4.2 mmol/L (3.4-5.0); Sodium 141 mmol/L (137-145)
[2021-03-27 10:38] LABS: Parathyroid Intact 210.5 pg/mL (7.5-53.5)
[2021-03-27 11:14] LABS: Vitamin D 25 Hydroxy 24.6 ng/mL
== END 2021-03-27 08:52 | disposition home or self-care (01) ==
LOC: ANHLAB 08:55
PROVIDERS: PCP Nurse Practitioner Family; Visit Provider Internal Medicine Endocrinology, Diabetes & Metabolism
DX: E83.52 Hypercalcemia (principal); N20.0 Calculus of kidney
CPT/HCPCS: 36415; 80048; 82040; 82306; 83970

== ENCOUNTER 2021-06-19 09:57 | Outpatient (CLI) | payer MEDICARE, SELFPAY ==
--- NOTE | ~2021-06-19 | NM_ITS ---
EXAMINATION: NM hepatobiliary wo pharm DATE: 06/19/2021 12:38 INDICATION: Right upper quadrant abdominal pain. COMPARISON: CT abdomen and pelvis 12/06/2020 TECHNIQUE: 5.7 mCi Tc-99m mebrofenin (Choletec) was administered intravenously. Scintigraphic images of the abdomen were obtained for one hour. Then, the patient drank 8 oz Ensure, and imaging was cont inued for 60 minutes. FINDINGS: There is normal clearance of radiotracer from the blood pool. There is homogeneous tracer u ptake by the liver. Activity progresses to the bowel and gallbladder. Gallbladder ejection fraction (GBEF) was 69%. Note that with this technique, normal GBEF >= 33%. IMPRESSION: 1. Normal hepatobiliary scintigraphy. Reviewed, dictated and finalized at location A.
== END 2021-06-19 09:58 | disposition home or self-care (01) ==
LOC: CHSIMG 09:58
PROVIDERS: PCP Nurse Practitioner Family; Visit Provider Nurse Practitioner Family
DX: R10.11 Right upper quadrant pain (principal); R19.7 Diarrhea, unspecified
CPT/HCPCS: 78226; A9537

== ENCOUNTER 2021-06-26 09:45 | Outpatient (CLI) | payer MEDICARE, SELFPAY ==
[2021-06-26 10:18] LABS: Albumin Level 4.2 g/dL (3.5-5.1); Anion Gap 7 mmol/L (8-16); Blood Urea Nitrogen 15 mg/dL (9-20); Calcium 10.5 mg/dL (8.4-10.2); Carbon Dioxide 34 mmol/L (22-30); Chloride 101 mmol/L (98-107); Estimated Glomerular Filt Rate 59; Glucose 149 mg/dL (65-110); Potassium 3.4 mmol/L (3.4-5.0); Sodium 142 mmol/L (137-145)
[2021-06-26 10:29] LABS: Parathyroid Intact 174.7 pg/mL (7.5-53.5)
[2021-06-26 11:19] LABS: Vitamin D 25 Hydroxy 31.9 ng/mL
== END 2021-06-26 09:46 | disposition home or self-care (01) ==
LOC: ANHLAB 09:50
PROVIDERS: PCP Nurse Practitioner Family; Visit Provider Internal Medicine Endocrinology, Diabetes & Metabolism
DX: E34.9 Endocrine disorder, unspecified (principal); E55.9 Vitamin D deficiency, unspecified; N20.0 Calculus of kidney
CPT/HCPCS: 36415; 80048; 82040; 82306; 83970

== ENCOUNTER 2021-12-13 14:03 | Outpatient (CLI) | payer MEDICARE, SELFPAY ==
[2021-12-13 14:20] LABS: Hematocrit 41.2 % (37.0-46.0); Hemoglobin 13.2 g/dL (12.4-15.3); Mean Corpuscular Hemoglobin 29.1 pg (27.0-31.0); Mean Corpuscular Volume 90.7 fL (78.0-102.0); Platelet Count Result 298 K/mm3 (150-420); Red Blood Count 4.54 M/mm3 (4.70-6.10); Red Cell Distribution Width 13.7 % (11.6-14.4); White Blood Count 13.2 K/mm3 (4.8-10.8)
[2021-12-13 15:03] LABS: Alanine Aminotransferase 24 U/L (16-63); Albumin Level 3.7 g/dL (3.4-5.0); Alkaline Phosphatase 84 U/L (46-116); Anion Gap 7 mmol/L (8-16); Aspartate Amino Transferase 18 U/L (15-37); Bilirubin,Total 0.4 mg/dL (0.00-1.00); Blood Urea Nitrogen 23 mg/dL (7-18); Carbon Dioxide 31 mmol/L (21-32); Chloride 102 mmol/L (98-108); Estimated Glomerular Filt Rate > 60; Glucose 99 mg/dL (70-99); Osmolality Calculated 293 mOsm/kg (285-295); Prostate Specific Antigen 4.9 ng/mL (< OR = 4.0); Sodium 140 mmol/L (136-145); Total Protein 6.7 g/dL (6.4-8.2)
[2021-12-13 15:10] LABS: Calcium 12.2 mg/dL (8.5-10.1)
== END 2021-12-13 14:04 | disposition home or self-care (01) ==
LOC: CHSLAB 14:07
PROVIDERS: PCP Nurse Practitioner Family; Visit Provider Family Medicine
DX: R97.20 Elevated prostate specific antigen [PSA] (principal); R35.1 Nocturia
CPT/HCPCS: 36415; 80053; 84153; 85027; G0103

== ENCOUNTER 2021-12-26 14:39 | Outpatient (CLI) | payer MEDICARE, SELFPAY ==
[2021-12-26 15:27] LABS: Alanine Aminotransferase 30 U/L (16-63); Albumin Level 3.6 g/dL (3.4-5.0); Alkaline Phosphatase 77 U/L (46-116); Anion Gap 3 mmol/L (8-16); Aspartate Amino Transferase 24 U/L (15-37); Bilirubin,Total 0.3 mg/dL (0.00-1.00); Blood Urea Nitrogen 16 mg/dL (7-18); Calcium 11.6 mg/dL (8.5-10.1); Carbon Dioxide 35 mmol/L (21-32); Chloride 101 mmol/L (98-108); Estimated Glomerular Filt Rate 59; Glucose 94 mg/dL (70-99); Osmolality Calculated 289 mOsm/kg (285-295); Potassium 3.7 mmol/L (3.5-5.1); Sodium 139 mmol/L (136-145); Total Protein 6.8 g/dL (6.4-8.2)
== END 2021-12-26 14:40 | disposition home or self-care (01) ==
LOC: CHSLAB 14:41
PROVIDERS: PCP Nurse Practitioner Family; Visit Provider Nurse Practitioner Family
DX: E83.52 Hypercalcemia (principal); Z00.00 Encounter for general adult medical examination without abnormal findings
CPT/HCPCS: 36415; 80053

== ENCOUNTER 2024-02-06 13:51 | Outpatient (CLI) | payer OTHER, MEDICARE, SELFPAY ==
--- NOTE | ~2024-02-06 | MR_ITS ---
MRI of the lumbar spine Clinical History: Spinal stenosis Technique: Axial T2-weighted images, and sagittal T1-weighted, T2-weighted, and T2 fat-sat images wer e acquired. Findings: No fracture seen. There is grade 1 anterolisthesis of L5 over S1. There is grade 1 retrolis thesis of L3 over L4, and L4 over L5. No suspicious bone marrow signal seen. At L1-L2, there is moderate to advanced degenerative disc narrowing. There is mild disc bulge and mil d to moderate facet arthropathy. No central canal stenosis or neural foraminal narrowing. At L2-L3, there is severe degenerative disc narrowing. There is moderate facet arthropathy. No centra l canal stenosis or neural foraminal narrowing. At L3-L4, there is advanced degenerative disc narrowing. There is mild disc bulge and moderate facet arthropathy. No central canal stenosis. There is mild to moderate right neural foraminal narrowing. L eft neural foramen preserved. At L4-L5, there is advanced degenerative disc narrowing. Disc bulge and moderate facet arthropathy ar e present, with mild central canal stenosis and significant left lateral recess stenosis. There is se lon bilateral neural foraminal compromise, left worse than right. At L5-S1, there is moderate degenerative disc narrowing. There is mild disc bulge with severe facet a rthropathy. No central canal stenosis. There is severe left neural foraminal narrowing. Right neural foramen preserved. Paravertebral soft tissues are unremarkable. Impression: Advanced degenerative spondylosis, as detailed above. Reviewed, dictated and finalized at [facility]. Impression: Advanced degenerative spondylosis, as detailed above.
== END 2024-02-06 13:52 | disposition home or self-care (01) ==
DX: M48.062 Spinal stenosis, lumbar region with neurogenic claudication (principal); M47.896 Other spondylosis, lumbar region
CPT/HCPCS: 72148